=== PATIENT | female | born 1965 | race Caucasian/White ===

== ENCOUNTER 2017-04-07 16:29 | Outpatient (CLI) | payer BC ==
--- NOTE | 2017-04-22 11:37 | Mammography Report ---
DIGITAL BILATERAL SCREENING MAMMOGRAM: 04/07/2017 COMPARISON: None. TECHNIQUE: Routine CC and MLO projections were obtained of the breasts. FINDINGS: Scattered fibroglandular tissue is present within the breasts. There are no dominant terrence s, suspicious microcalcifications, or secondary signs of malignancy. In comparison to the previous st udies, there are no significant changes. ASSESSMENT: NO MAMMOGRAPHIC EVIDENCE OF MALIGNANCY. NO SIGNIFICANT INTERVAL CHANGES. RECOMMENDATION: Screening mammography is recommended annually. BI-RADS category 1 - negative. STANDARD QUALIFYING STATEMENTS 1. This examination was reviewed with the aid of Computed-Aided Detection (CAD). 2. A negative or benign imaging report should not delay biopsy if clinically suspicious findings are present. Consider surgical consultation if warranted. More than 5% of cancers are not identified by i maging. 3. Dense breasts may obscure an underlying neoplasm. JOB #: [id number] EXT JOB #:[id number]
== END 2017-04-07 16:30 | disposition home or self-care (01) ==
LOC: DI 16:29
PROVIDERS: ATTEND Family Medicine
DX: Z12.31 Encounter for screening mammogram for malignant neoplasm of breast (principal)
CPT/HCPCS: 77067

== ENCOUNTER 2017-07-06 08:00 | Outpatient (CLI) | payer BC ==
[2017-07-06 12:40] LABS: BASOPHILS # (AUTO) 0.1 10^3/uL (0.0-0.1); BASOPHILS % (AUTO) 1.1 %; EOSINOPHILS # (AUTO) 0.6 10^3/uL (0.0-0.7); EOSINOPHILS % (AUTO) 8.3 %; HGB - HEMOGLOBIN 13.7 g/dL (12.0-16.0); LYMPHOCYTES # (AUTO) 1.7 10^3/uL (1.5-3.5); LYMPHOCYTES % (AUTO) 25.5 %; MEAN CORPUSCULAR HEMOGLOBIN 29.8 pg (27.0-31.0); MEAN CORPUSCULAR HGB CONC 34.7 g/dL (32.0-36.0); MEAN CORPUSCULAR VOLUME 85.8 fL (81.0-99.0); MEAN PLATELET VOLUME 7.4 fL (7.9-10.8); MONOCYTES # (AUTO) 0.3 10^3/uL (0.0-1.0); MONOCYTES % (AUTO) 5.1 %; NEUTROPHILS # (AUTO) 4.1 10^3/uL (1.5-6.6); PLT - PLATELET COUNT 338 10^3/uL (130-450); RED BLOOD COUNT 4.59 10^6/uL (4.20-5.40); WHITE BLOOD COUNT 6.8 x10^3/uL (4.8-10.8)
[2017-07-06 13:33] LABS: ALBUMIN 3.7 g/dL (3.2-5.5); ALBUMIN/GLOBULIN RATIO 1.2 (1.0-2.2); ALKALINE PHOSPHATASE 46 IU/L (42-121); ALT ALANINE AMINOTRANSFERASE 24 IU/L (10-60); AST ASPARTATE AMINOTRANSFERASE 19 IU/L (10-42); BILIRUBIN,TOTAL 0.4 mg/dL (0.2-1.0); BUN - BLOOD UREA NITROGEN 12 mg/dL (6-20); CALCIUM 8.5 mg/dL (8.5-10.3); CARBON DIOXIDE - CO2 24 mmol/L (21-32); CHLORIDE 106 mmol/L (101-111); CHOL/HDL RATIO 5.1 (<4.4); CHOLESTEROL 218 mg/dL; CREATININE 0.8 mg/dL (0.4-1.0); GFR - MDRD 76 (>89); GLUCOSE 99 mg/dL (70-100); HDL CHOLESTEROL 43 mg/dL; LDL CHOLESTEROL,CALCULATED 152 mg/dL; LDL/HDL RATIO 3.5 (<4.4); SODIUM 135 mmol/L (135-145); TOTAL PROTEIN 6.9 g/dL (6.7-8.2); VLDL CHOLESTEROL 23 mg/dL
== END 2017-07-06 08:01 | disposition home or self-care (01) ==
LOC: LAB.WCP 08:00
PROVIDERS: ATTEND Family Medicine
DX: Z00.00 Encounter for general adult medical examination without abnormal findings (principal)
CPT/HCPCS: 36415; 80053; 80061; 84443; 85025

== ENCOUNTER 2017-08-19 14:50 | Outpatient (CLI) | payer BC ==
--- NOTE | 2017-08-20 11:17 | MRI Report ---
EXAM: MRI LUMBAR SPINE WITHOUT CONTRAST EXAM DATE: 08/19/2017 03:00 PM. CLINICAL HISTORY: Lumbar radiculopathy, right. COMPARISON: None. TECHNIQUE: Multiplanar, multisequence T1-weighted and fluid-sensitive sequences of the lumbar spine f rom T12 to S1 without contrast. Other: None. FINDINGS: Spinal Cord: The conus terminates at L1. The conus medullaris and cauda equina are unremarkable. Alignment: No scoliosis or spondylolisthesis. Bone Marrow: Five cpp-lor-rimeehe lumbar vertebral bodies are assumed. No gross fractures or bone les ions. No bone marrow edema. Disk Levels/Facets: T12-L1: Unremarkable. L1-L2: Unremarkable. L2-L3: Unremarkable. L3-L4: Unremarkable. L4-L5: Some disk dehydration. Prominent facets. No central or foraminal stenosis. L5-S1: Disk dehydration, disk space height loss, right paracentral annular tear and focal disk extrus ion is present, with mass-effect on the right ventral thecal sac and the right S1 nerve root in the s ubarticular zone. This disk extrusion is 1.4 x 0.8 cm transversely extending for a 0.9 cm cephalocaud al extent. Series 601 image 4, series 301 image 8. Musculature: Moderate fatty atrophy of the multifidus muscle is seen. Other: The partially visualized retroperitoneum is unremarkable. IMPRESSION: 1. Spinal cord terminates at L1, no abnormal cord signal. Bones, articular surfaces appear unremarkab le. Moderate fatty atrophy of the multifidus muscle. 2. L4-L5 shows some disk dehydration, no central or foraminal stenosis. 3. L5-S1 shows disk hydration and disk space height loss. There is a right paracentral annular tear a nd focal disk extrusion measuring 1.4 x 0.8 x 0.9 cm. It exerts mass-effect on the right ventral thec al sac creating at least mild stenosis. There also is some effacement of the right S1 root in the sub articular zone. Comment: The following findings are so common in adults without low back pain that while we report th eir presence, they must be interpreted with caution and in the context of the clinical situation. (Re ronni Ramon et al, Spine 2001) Prevalence of findings in patients without low back pain: Disk degeneration (any evidence): 92% Disk desiccation/T2 signal loss: 83% Disk height loss: 56% Disk bulge: 64% Disk protrusion: 32% Annular tear/high intensity zone: 38% [facility] Referring Provider Line: [phone] SITE ID: [id number]
== END 2017-08-19 14:51 | disposition home or self-care (01) ==
LOC: DI 14:50
PROVIDERS: ATTEND Family Medicine
DX: M51.36 Other intervertebral disc degeneration, lumbar region (principal); M51.27 Other intervertebral disc displacement, lumbosacral region; M51.37 Other intervertebral disc degeneration, lumbosacral region
CPT/HCPCS: 72148

== ENCOUNTER 2017-11-09 08:10 | Outpatient (CLI) | payer BC | END 2017-11-09 08:11 | LOC: LAB.WCP 08:10 | PROVIDERS: ATTEND Family Medicine | DX: L02.415 Cutaneous abscess of right lower limb (principal) | CPT/HCPCS: 87070; 87205 ==

== ENCOUNTER 2018-03-19 14:53 | Emergency (ER) | payer BC ==
--- NOTE | 2018-03-19 15:29 | ED Physician Documentation ---
PD HPI ABD PAIN - Stated complaint Stated Complaint: LLQ PX/ LAPBAND/4 DAYS - Chief complaint Chief Complaint: Abd Pain - History obtained from History obtained from: Patient - History of Present Illness Timing - onset: Other (This is a 52-year-old woman with a 15-year-old LAP-BAND and history of hysterectomy. No colonoscopy in the past. She said 4 days of constant left lower quadrant pain that is worse with motion associated with nausea but no changes in her bowel movements or hematochezia. She is never had this before. No fevers. She declines pain medication.) Review of Systems Ten Systems: 10 systems reviewed and negative Constitutional: denies: Fever, Chills Cardiac: denies: Chest pain / pressure, Palpitations Respiratory: denies: Dyspnea, Cough GI: reports: Abdominal Pain, Nausea. denies: Vomiting, Constipation, Diarrhea, Bloody / black stool PD PAST MEDICAL HISTORY - Present Medications Home Medications: Ambulatory Orders Medication Instructions Recorded Confirmed Magnesium 1 tab PO DAILY 03/19/18 03/19/18 Milk Thistle Seed Extract [Milk 1 tab PO DAILY 03/19/18 03/19/18 Thistle] Turmeric/Turmeric Root Extract 1 cap PO DAILY 03/19/18 03/19/18 [Turmeric 500 mg Capsule] Vit A/D3/Tocophersolan/Vit K 1 tab PO DAILY 03/19/18 03/19/18 [Dekas Essential Liquid] - Allergies Allergies/Adverse Reactions: Allergies Allergy/AdvReac Type Severity Reaction Status Date / Time No Known Drug Allergies Allergy Verified 03/19/18 15:00 PD ED PE NORMAL - Vitals Vital signs reviewed: Yes - General General: Alert and oriented X 3, No acute distress - HEENT HEENT: PERRL, EOMI - Neck Neck: Supple, no meningeal sign, No bony TTP - Cardiac Cardiac: RRR, No murmur - Respiratory Respiratory: No respiratory distress, Clear bilaterally - Abdomen Abdomen: Normal bowel sounds, Soft, Other (I am unable to identify her lap band port definitively by palpation. She is tender in the left lower quadrant and pelvis without surgical signs.) - Back Back: No CVA TTP, No spinal TTP - Derm Derm: Normal color, Warm and dry - Extremities Extremities: No edema, No calf tenderness / cord - Neuro Neuro: Alert and oriented X 3, Normal speech Results - Vitals Vitals: Vital Signs - 24 hr 03/19/18 14:55 Temperature 36.5 C Heart Rate 88 Respiratory 16 Rate Blood Pressure 152/98 H O2 Saturation 96 Oxygen O2 Source Room air - Labs Labs: Laboratory Tests 03/19/18 03/19/18 03/19/18 15:32 15:32 17:00 WBC 10.1 RBC 4.65 Hgb 13.5 Hct 39.8 MCV 85.5 MCH 29.1 MCHC 34.1 RDW 14.3 Plt Count 333 MPV 6.9 L Neut # (Auto) 6.4 Lymph # (Auto) 2.3 [place] # (Auto) 0.5 Eos # (Auto) 0.9 H Baso # (Auto) 0.1 Absolute Nucleated RBC 0.01 Nucleated RBC % 0.1 Sodium 137 Potassium 3.2 L Chloride 104 Carbon Dioxide 27 Anion Gap 6.0 BUN 10 Creatinine 0.7 Estimated GFR (MDRD) 89 Glucose 93 Calcium 8.7 Total Bilirubin 0.3 AST 29 ALT 39 Alkaline Phosphatase 53 Total Protein 6.7 Albumin 3.4 Globulin 3.3 Albumin/Globulin Ratio 1.0 Lipase 37 Urine Color YELLOW Urine Clarity CLEAR Urine pH 6.0 Ur Specific [place] 1.020 Urine Protein NEGATIVE Urine Glucose (UA) NEGATIVE Urine Ketones NEGATIVE Urine Occult Blood NEGATIVE Urine Nitrite NEGATIVE Urine Bilirubin NEGATIVE Urine Urobilinogen 0.2 (NORMAL) Ur Leukocyte Esterase NEGATIVE Ur Microscopic Review NOT INDICATED Urine Culture Comments NOT INDICATED - Rads (name of study) Ct A/P Radiology: See rad report (Small fat containing L femoral hernia, lap band with broken tubing/) PD MEDICAL DECISION MAKING - ED course ED course: History and physical is most consistent with diverticulitis. Be pretty late to have a LAP-BAND complication. I discussed my approach with her including IV, labs, and a contrast-enhanced CT. She is deathly afraid of needles and despite offering an anxiolytic she refused any IV or lab draw. After resulting the CT scan the case was discussed by phone with Dr. Williams Steward, the on-call surgeon. The broken lap band tubing is inconsequential and should not cause pain but the LAP-BAND will not work. Given the finding of the left sided femoral hernia she was specifically examined and had no tenderness down there. - Sepsis Event Vital Signs: Vital Signs - 24 hr 03/19/18 14:55 Temperature 36.5 C Heart Rate 88 Respiratory 16 Rate Blood Pressure 152/98 H O2 Saturation 96 Oxygen O2 Source Room air Departure - Departure Disposition: 01 Home, Self Care Clinical Impression: Femoral hernia of left side Abdominal pain Qualifiers: Abdominal location: left lower quadrant Qualified Code(s): R10.32 - Left lower quadrant pain Condition: Good Record reviewed to determine appropriate education?: Yes Instructions: ED Abdominal Pain Unkn Cause Comments: Return immediately if he develop increased pain, vomiting, fever, or other new or concerning symptoms. Follow-up with your doctor next week for reevaluation. Consider following up with a bariatric surgeon regarding the broken lap band. Your blood pressure was elevated today on check into the emergency department. This does not mean that you have hypertension, it is a common phenomenon to come to the emergency department and have elevated blood pressure. I recommend that you see your primary care physician within the week to have it rechecked when you are feeling better.
[2018-03-19 15:53] LABS: BASOPHILS # (AUTO) 0.1 10^3/uL (0.0-0.1); BASOPHILS % (AUTO) 1.1 %; EOSINOPHILS # (AUTO) 0.9 10^3/uL (0.0-0.7); EOSINOPHILS % (AUTO) 8.7 %; HGB - HEMOGLOBIN 13.5 g/dL (12.0-16.0); LYMPHOCYTES # (AUTO) 2.3 10^3/uL (1.5-3.5); LYMPHOCYTES % (AUTO) 22.4 %; MEAN CORPUSCULAR HEMOGLOBIN 29.1 pg (27.0-31.0); MEAN CORPUSCULAR HGB CONC 34.1 g/dL (32.0-36.0); MEAN CORPUSCULAR VOLUME 85.5 fL (81.0-99.0); MEAN PLATELET VOLUME 6.9 fL (7.9-10.8); MONOCYTES # (AUTO) 0.5 10^3/uL (0.0-1.0); MONOCYTES % (AUTO) 4.6 %; NEUTROPHILS # (AUTO) 6.4 10^3/uL (1.5-6.6); NEUTROPHILS % (AUTO) 63.2 %; PLT - PLATELET COUNT 333 10^3/uL (130-450); RED BLOOD COUNT 4.65 10^6/uL (4.20-5.40); RED CELL DISTRIBUTION WIDTH 14.3 % (12.0-15.0); WHITE BLOOD COUNT 10.1 x10^3/uL (4.8-10.8)
[2018-03-19 15:54] LABS: ALBUMIN 3.4 g/dL (3.2-5.5); BILIRUBIN,TOTAL 0.3 mg/dL (0.2-1.0); CALCIUM 8.7 mg/dL (8.5-10.3); CREATININE 0.7 mg/dL (0.4-1.0); TOTAL PROTEIN 6.7 g/dL (6.7-8.2)
--- NOTE | 2018-03-19 16:42 | CT Report ---
Reason: LLQ pain, pt refused IV Procedure Date: 03/19/2018 Accession Number: [id number] / [id number] Procedure: CT - Abdomen/Pelvis W/O CPT Code: FULL RESULT: EXAM: CT ABDOMEN AND PELVIS EXAM DATE: 03/19/2018 04:09 PM. CLINICAL HISTORY: LLQ pain, pt refused IV. COMPARISONS: None. TECHNIQUE: Routine axial helical CT imaging was performed through the abdomen and pelvis without IV contrast. Reconstructions: Coronal and sagittal. In accordance with CT protocol optimization, one or more of the following dose reduction techniques were utilized for this exam: automated exposure control, adjustment of mA and/or KV based on patient size, or use of iterative reconstructive technique. FINDINGS: Lung Bases: Unremarkable. Abdominal Organs: Noncontrast images of the abdominal organs are grossly unremarkable. Gallbladder/bile ducts: No significant abnormalities. Peritoneal Cavity: No free fluid, free air or belia adenopathy. Bowel is grossly unremarkable. Pelvic Organs: No bladder stones or wall thickening. Noncontrast images of the visualized pelvic organs are unremarkable. Vasculature: Unremarkable. Other: Small fat-containing left angle hernia without evidence of associated inflammation. There is discontinuity of the gastric lap band tubing. IMPRESSION: 1. Gastric lap band is in place. There is disruption of the tubing of the lap band apparatus. 2. Solid abdominal organs demonstrate no acute noncontrast abnormalities. 3. No dilated or thick-walled bowel is seen. No evidence of appendicitis or bowel obstruction. 4. There is a small fat-containing left femoral hernia without evidence of associated inflammation. ADDENDUM: 03/19/18 16:43 Corrected IMPRESSION: 4. There is a small fat-containing left inguinal hernia without evidence of associated inflammation.
[2018-03-19 17:19] LABS: BILIRUBIN,URINE NEGATIVE (NEGATIVE); GLUCOSE, URINE (UA) NEGATIVE (NEGATIVE); KETONES,URINE (UA) NEGATIVE (NEGATIVE); LEUKOCYTE ESTERASE, URINE NEGATIVE (NEGATIVE); NITRITE,URINE NEGATIVE (NEGATIVE); OCCULT BLOOD,URINE NEGATIVE (NEGATIVE); PROTEIN,URINE NEGATIVE (NEGATIVE); UROBILINOGEN,URINE 0.2 (NORMAL) E.U./dL (NORMAL)
[2018-03-19 17:20] LABS: CLARITY,URINE CLEAR (CLEAR)
[2018-03-19 17:32] VITALS: BP 140/76
== END 2018-03-19 17:32 | disposition home or self-care (01) ==
LOC: ED 14:53
DX: K41.90 Unilateral femoral hernia, without obstruction or gangrene, not specified as recurrent (principal); R10.32 Left lower quadrant pain; R03.0 Elevated blood-pressure reading, without diagnosis of hypertension; Z98.84 Bariatric surgery status; Z90.710 Acquired absence of both cervix and uterus
CPT/HCPCS: 36415; 74176; 80053; 81001; 81003; 83690; 85025; 87086; 99283; 99284

== ENCOUNTER 2018-03-31 07:42 | Outpatient (CLI) | payer BC ==
[2018-03-31 13:09] LABS: BASOPHILS # (AUTO) 0.1 10^3/uL (0.0-0.1); BASOPHILS % (AUTO) 0.9 %; EOSINOPHILS # (AUTO) 0.7 10^3/uL (0.0-0.7); EOSINOPHILS % (AUTO) 8.4 %; HGB - HEMOGLOBIN 13.6 g/dL (12.0-16.0); LYMPHOCYTES # (AUTO) 1.9 10^3/uL (1.5-3.5); LYMPHOCYTES % (AUTO) 24.3 %; MEAN CORPUSCULAR HGB CONC 33.7 g/dL (32.0-36.0); MEAN PLATELET VOLUME 7.4 fL (7.9-10.8); MONOCYTES # (AUTO) 0.5 10^3/uL (0.0-1.0); MONOCYTES % (AUTO) 6.7 %; NEUTROPHILS # (AUTO) 4.6 10^3/uL (1.5-6.6); NEUTROPHILS % (AUTO) 59.7 %; PLT - PLATELET COUNT 348 10^3/uL (130-450); RED BLOOD COUNT 4.69 10^6/uL (4.20-5.40); RED CELL DISTRIBUTION WIDTH 14.6 % (12.0-15.0); WHITE BLOOD COUNT 7.7 x10^3/uL (4.8-10.8)
[2018-03-31 13:11] LABS: % IRON SATURATION 14 % (20-50); ALBUMIN 3.4 g/dL (3.2-5.5); ALKALINE PHOSPHATASE 57 IU/L (42-121); ALT ALANINE AMINOTRANSFERASE 24 IU/L (10-60); AST ASPARTATE AMINOTRANSFERASE 19 IU/L (10-42); BILIRUBIN,TOTAL 0.5 mg/dL (0.2-1.0); BUN - BLOOD UREA NITROGEN 11 mg/dL (6-20); CALCIUM 8.4 mg/dL (8.5-10.3); CARBON DIOXIDE - CO2 24 mmol/L (21-32); CHLORIDE 104 mmol/L (101-111); CHOL/HDL RATIO 5.5 (<4.4); CHOLESTEROL 209 mg/dL; CREATININE 0.7 mg/dL (0.4-1.0); GFR - MDRD 89 (>89); GLUCOSE 94 mg/dL (70-100); HDL CHOLESTEROL 38 mg/dL; IRON 43 ug/dL (28-170); LDL CHOLESTEROL,CALCULATED 149 mg/dL; LDL/HDL RATIO 3.9 (<4.4); SODIUM 136 mmol/L (135-145); TOTAL IRON BINDING CAPACITY 304 ug/dL (250-450); TOTAL PROTEIN 6.8 g/dL (6.7-8.2); TRANSFERRIN 217 mg/dL (192-382); VLDL CHOLESTEROL 22 mg/dL
[2018-03-31 13:16] LABS: PT - PROTHROMBIN TIME 11.3 secs (9.9-12.6)
[2018-03-31 13:20] LABS: THYROID STIMULATING HORMONE 1.08 uIU/mL (0.34-5.60)
[2018-03-31 13:28] LABS: FERRITIN 48.7 ng/mL (11.0-306.8)
[2018-03-31 13:32] LABS: FOLATE 7.93 ng/mL (5.90 - >24.8)
[2018-03-31 13:52] LABS: HB2 TOTAL 14.2 g/dL; HEMOGLOBIN A1C 0.52 g/dL; HEMOGLOBIN A1C % 5.5 % (4.6-6.2)
== END 2018-03-31 07:43 | disposition home or self-care (01) ==
LOC: LAB.WCP 07:42
PROVIDERS: ATTEND Surgery
DX: Z01.812 Encounter for preprocedural laboratory examination (principal); E46 Unspecified protein-calorie malnutrition; E63.9 Nutritional deficiency, unspecified
CPT/HCPCS: 36415; 80053; 80061; 81599; 82306; 82607; 82728; 82746; 83036; 83525; 83540; 83721; 84425; 84443; 84466; 84481; 85025; 85610; 85730

== ENCOUNTER 2018-05-04 08:27 | Outpatient (CLI) | payer BC ==
--- NOTE | 2018-05-05 11:04 | Mammography Report ---
Reason: SCREENING MAMMO Procedure Date: 05/04/2018 Accession Number: [id number] / [id number] Procedure: NIMO - Screening Mammo Dig Bilat CPT Code: FULL RESULT: EXAM: Screening Mammo Dig Bilat DATE: 05/04/2018 9:14 AM CLINICAL HISTORY: 52-year-old female with family history of breast cancer in an aunt in her 40s for screening. TECHNIQUE: Bilateral CC and MLO views were obtained. COMPARISON: 04/07/2017. FINDINGS: The breasts demonstrate scattered fibroglandular densities bilaterally. No suspicious masses, clustered microcalcifications, or regions of architectural distortion are identified. IMPRESSION: Negative examination RECOMMENDATION: Routine annual screening unless otherwise clinically indicated. BIRADS CATEGORY 1: Negative STANDARD QUALIFYING STATEMENTS: 1. This examination was not reviewed with the aid of Computer-Aided Detection (CAD). 2. A negative or benign imaging report should not delay biopsy if clinically suspicious findings are present. Consider surgical consultation if warrented. More than 5% of cancers are not identified by imaging. 3. Dense breasts may obscure an underlying neoplasm. 4. This examination was reviewed without the aid of 3D breast imaging (tomosynthesis).
== END 2018-05-04 08:28 | disposition home or self-care (01) ==
LOC: DI 08:27
DX: Z12.31 Encounter for screening mammogram for malignant neoplasm of breast (principal); Z80.3 Family history of malignant neoplasm of breast
CPT/HCPCS: 77067

== ENCOUNTER 2018-06-02 22:40 | Outpatient (CLI) | payer BC ==
--- NOTE | 2018-06-04 07:55 | Ultrasound Report ---
Reason: ABDOMINAL PAIN Procedure Date: 06/03/2018 Accession Number: [id number] / [id number] Procedure: US - Abdomen Limited CPT Code: FULL RESULT: EXAM: ABDOMEN ULTRASOUND LIMITED, RUQ EXAM DATE: 06/03/2018 12:29 AM. CLINICAL HISTORY: ABDOMINAL PAIN. COMPARISON: None. TECHNIQUE: Real-time scanning was performed with static images obtained. FINDINGS: Scanning of the region of pain identified by the patient was performed. There is no evidence of a hernia. Image quality is degraded by Steri-Strips and locations. Trace fluid is seen in the subcutaneous fat, measuring 8 x 2 x 1 mm. IMPRESSION: No evidence of a hernia in the region of pain identified by the patient. Trace fluid in the subcutaneous fat. [facility]
== END 2018-06-02 22:41 | disposition home or self-care (01) ==
LOC: DI 22:40
PROVIDERS: ATTEND Surgery
DX: R10.9 Unspecified abdominal pain (principal)
CPT/HCPCS: 76705

== ENCOUNTER 2018-11-01 08:00 | Outpatient (CLI) | payer BC ==
[2018-11-01 12:44] LABS: BASOPHILS # (AUTO) 0.1 10^3/uL (0.0-0.1); EOSINOPHILS # (AUTO) 0.3 10^3/uL (0.0-0.7); EOSINOPHILS % (AUTO) 5.3 %; HGB - HEMOGLOBIN 12.8 g/dL (12.0-16.0); LYMPHOCYTES # (AUTO) 1.7 10^3/uL (1.5-3.5); LYMPHOCYTES % (AUTO) 26.3 %; MEAN CORPUSCULAR HEMOGLOBIN 30.7 pg (27.0-31.0); MEAN CORPUSCULAR HGB CONC 34.3 g/dL (32.0-36.0); MEAN CORPUSCULAR VOLUME 89.4 fL (81.0-99.0); MEAN PLATELET VOLUME 8.1 fL (7.9-10.8); MONOCYTES # (AUTO) 0.4 10^3/uL (0.0-1.0); MONOCYTES % (AUTO) 5.5 %; NEUTROPHILS # (AUTO) 3.9 10^3/uL (1.5-6.6); NEUTROPHILS % (AUTO) 60.9 %; PLT - PLATELET COUNT 296 10^3/uL (130-450); RED BLOOD COUNT 4.19 10^6/uL (4.20-5.40); RED CELL DISTRIBUTION WIDTH 14.3 % (12.0-15.0); WHITE BLOOD COUNT 6.5 x10^3/uL (4.8-10.8)
[2018-11-01 13:15] LABS: THYROID STIMULATING HORMONE 1.21 uIU/mL (0.34-5.60)
[2018-11-01 13:23] LABS: FERRITIN 42.3 ng/mL (11.0-306.8)
[2018-11-01 13:26] LABS: FOLATE 15.88 ng/mL (5.90 - >24.8)
[2018-11-01 14:19] LABS: % IRON SATURATION 16 % (20-50); ALBUMIN 3.7 g/dL (3.2-5.5); ALBUMIN/GLOBULIN RATIO 1.2 (1.0-2.2); ALKALINE PHOSPHATASE 57 IU/L (42-121); ALT ALANINE AMINOTRANSFERASE 21 IU/L (10-60); AST ASPARTATE AMINOTRANSFERASE 17 IU/L (10-42); BILIRUBIN,TOTAL 0.5 mg/dL (0.2-1.0); BUN - BLOOD UREA NITROGEN 11 mg/dL (6-20); CALCIUM 8.8 mg/dL (8.5-10.3); CARBON DIOXIDE - CO2 26 mmol/L (21-32); CHLORIDE 104 mmol/L (101-111); CHOL/HDL RATIO 3.9 (<4.4); CHOLESTEROL 166 mg/dL; CREATININE 0.7 mg/dL (0.4-1.0); GFR - MDRD 89 (>89); GLUCOSE 91 mg/dL (70-100); HDL CHOLESTEROL 43 mg/dL; IRON 53 ug/dL (28-170); LDL CHOLESTEROL,CALCULATED 106 mg/dL; LDL/HDL RATIO 2.5 (<4.4); SODIUM 139 mmol/L (135-145); TOTAL IRON BINDING CAPACITY 329 ug/dL (250-450); TOTAL PROTEIN 6.9 g/dL (6.7-8.2); TRANSFERRIN 235 mg/dL (192-382); VLDL CHOLESTEROL 17 mg/dL
[2018-11-01 14:32] LABS: HB2 TOTAL 13.6 g/dL; HEMOGLOBIN A1C 0.46 g/dL; HEMOGLOBIN A1C % 5.2 % (4.6-6.2)
== END 2018-11-01 08:01 | disposition home or self-care (01) ==
LOC: LAB.WCP 08:00
PROVIDERS: ATTEND Nurse Practitioner Acute Care
DX: E46 Unspecified protein-calorie malnutrition (principal); Z98.84 Bariatric surgery status
CPT/HCPCS: 36415; 80053; 80061; 81599; 82306; 82607; 82728; 82746; 83036; 83525; 83540; 83721; 84425; 84443; 84466; 85025

== ENCOUNTER 2019-04-05 08:31 | Day surgery (SDC) | payer BC ==
[2019-04-05] MEDS ORDERED: LACTATED RINGERS 1,000 ML IV ONE (09:22)
[2019-04-05] MEDS ORDERED: fentaNYL 250 MCG/5 ML VIAL IVP ONE (10:32)
[2019-04-05] MEDS ORDERED: MIDAZOLAM 2 MG/2 ML VIAL IVP ONE (10:32)
[2019-04-05 12:49] VITALS: BP 104/60
== END 2019-04-05 08:32 | disposition home or self-care (01) ==
LOC: SDS 08:31
PROVIDERS: ATTEND Internal Medicine Gastroenterology
PROC: 0DBL8ZZ Excision of Transverse Colon, Via Natural or Artificial Opening Endoscopic (ICD-10-PCS; 2019-04-05)
PROC: 0DBP8ZZ Excision of Rectum, Via Natural or Artificial Opening Endoscopic (ICD-10-PCS; principal; 2019-04-05 10:15)
DX: Z12.11 Encounter for screening for malignant neoplasm of colon (principal); K63.89 Other specified diseases of intestine; D12.8 Benign neoplasm of rectum; K21.9 Gastro-esophageal reflux disease without esophagitis; Z98.84 Bariatric surgery status; J30.9 Allergic rhinitis, unspecified; M54.5 Low back pain; Z87.891 Personal history of nicotine dependence; F40.231 Fear of injections and transfusions
CPT/HCPCS: 45380; J3010; J7120

== ENCOUNTER 2019-06-02 08:00 | Outpatient (CLI) | payer BC ==
[2019-06-02 13:03] LABS: BASOPHILS # (AUTO) 0.1 10^3/uL (0.0-0.1); EOSINOPHILS # (AUTO) 0.5 10^3/uL (0.0-0.7); EOSINOPHILS % (AUTO) 6.3 %; LYMPHOCYTES % (AUTO) 25.4 %; MEAN CORPUSCULAR HEMOGLOBIN 29.1 pg (27.0-31.0); MEAN CORPUSCULAR HGB CONC 32.3 g/dL (32.0-36.0); MEAN CORPUSCULAR VOLUME 90.1 fL (81.0-99.0); MEAN PLATELET VOLUME 9.8 fL (7.9-10.8); MONOCYTES # (AUTO) 0.5 10^3/uL (0.0-1.0); MONOCYTES % (AUTO) 5.7 %; NEUTROPHILS # (AUTO) 4.9 10^3/uL (1.5-6.6); NEUTROPHILS % (AUTO) 61.3 %; PLT - PLATELET COUNT 305 10^3/uL (130-450); RED BLOOD COUNT 4.46 10^6/uL (4.20-5.40); RED CELL DISTRIBUTION WIDTH 13.9 % (12.0-15.0)
[2019-06-02 13:19] LABS: THYROID STIMULATING HORMONE 0.88 uIU/mL (0.34-5.60)
[2019-06-02 13:25] LABS: % IRON SATURATION 32 % (20-50); ALBUMIN 3.9 g/dL (3.2-5.5); ALBUMIN/GLOBULIN RATIO 1.2 (1.0-2.2); ALKALINE PHOSPHATASE 47 IU/L (42-121); ALT ALANINE AMINOTRANSFERASE 19 IU/L (10-60); AST ASPARTATE AMINOTRANSFERASE 14 IU/L (10-42); BILIRUBIN,TOTAL 0.6 mg/dL (0.2-1.0); BUN - BLOOD UREA NITROGEN 13 mg/dL (6-20); CARBON DIOXIDE - CO2 27 mmol/L (21-32); CHLORIDE 107 mmol/L (101-111); CHOL/HDL RATIO 4.1 (<4.4); CHOLESTEROL 196 mg/dL; CREATININE 0.7 mg/dL (0.4-1.0); GFR - MDRD 88 (>89); GLUCOSE 89 mg/dL (70-100); HDL CHOLESTEROL 48 mg/dL; IRON 109 ug/dL (28-170); LDL CHOLESTEROL,CALCULATED 126 mg/dL; LDL/HDL RATIO 2.6 (<4.4); SODIUM 140 mmol/L (135-145); TOTAL IRON BINDING CAPACITY 340 ug/dL (250-450); TOTAL PROTEIN 7.1 g/dL (6.7-8.2); TRANSFERRIN 243 mg/dL (192-382); VLDL CHOLESTEROL 22 mg/dL
[2019-06-02 13:26] LABS: FERRITIN 39.1 ng/mL (11.0-306.8)
[2019-06-02 16:37] LABS: HB2 TOTAL 13.5 g/dL; HEMOGLOBIN A1C 0.51 g/dL; HEMOGLOBIN A1C % 5.6 % (4.6-6.2)
== END 2019-06-02 23:59 | disposition home or self-care (01) ==
LOC: LAB.WCP 08:00
PROVIDERS: ATTEND Surgery
DX: E63.9 Nutritional deficiency, unspecified (principal); K90.9 Intestinal malabsorption, unspecified; Z98.84 Bariatric surgery status
CPT/HCPCS: 36415; 80053; 80061; 81599; 82306; 82607; 82728; 82746; 83036; 83525; 83540; 83721; 84425; 84443; 84466; 85025

== ENCOUNTER 2019-06-14 15:47 | Outpatient (CLI) | payer BC ==
--- NOTE | 2019-06-15 11:20 | Mammography Report ---
Reason: ANNUAL SCREENING Procedure Date: 06/14/2019 Accession Number: [id number] / [id number] Procedure: NIMO - Screening Mammo Dig Bilat CPT Code: Final Report FULL RESULT: EXAM: Screening Mammo Dig Bilat DATE: 06/14/2019 4:14 PM CLINICAL HISTORY: Routine screening. TECHNIQUE: (B) - Bilateral CC and MLO views were obtained. COMPARISON: 05/04/2018, 04/07/2017 PARENCHYMAL PATTERN: (A) - The breasts demonstrate scattered fibroglandular densities bilaterally. FINDINGS: No significant interval change. There are no suspicious masses, calcifications, or areas of distortion. IMPRESSION: Negative examination. BI-RADS category 1. RECOMMENDATION: (ANNUAL) - Recommend routine annual screening mammography. BI-RADS CATEGORY: (1) - Negative. STANDARD QUALIFYING STATEMENTS: 1. This examination was not reviewed with the aid of Computer-Aided Detection (CAD). 2. A negative or benign imaging report should not preclude biopsy if clinically suspicious findings are present. 3. Dense breasts may obscure an underlying neoplasm. 4. This examination was reviewed without the aid of 3D breast imaging (tomosynthesis).
== END 2019-06-14 15:48 | disposition home or self-care (01) ==
LOC: DI 15:47
DX: Z12.31 Encounter for screening mammogram for malignant neoplasm of breast (principal)
CPT/HCPCS: 77067

== ENCOUNTER 2020-09-10 15:18 | Outpatient (CLI) | payer BC ==
--- NOTE | 2020-09-11 12:51 | Mammography Report ---
BILATERAL DIGITAL SCREENING MAMMOGRAM 3D/2D: 09/10/2020 CLINICAL: Routine screening. Comparison is made to exams dated: 06/14/2019 mammogram, 05/04/2018 mammogram, and 04/07/2017 mammogr am - [facility]. There are scattered fibroglandular elements in both breasts. There is a 0.8 cm irregular equal density asymmetry in the right breast posterior depth superior caryn on seen on the mediolateral oblique view only. This is more prominent and increased in size. No other significant masses, calcifications, or other findings are seen in either breast. IMPRESSION: INCOMPLETE: NEEDS ADDITIONAL IMAGING EVALUATION The 0.8 cm irregular equal density asymmetry in the right breast resembles a lymph node and is indete rminate. Additional views with possible ultrasound are recommended. This exam was interpreted at Station ID: [id number]. NOTE: For mammograms, a report in lay terms will be sent to the patient. Approximately 15% of breast malignancies will not be visualized mammographically. In the management of a palpable breast mass, a negative mammogram must not discourage biopsy of a clinically suspicious lesion. Electronically Signed By: Jayme Hernandez M.D. aty/:09/10/2020 17:05:24 ACR BI-RADS Category 0: Incomplete 3340F PARENCHYMAL PATTERN: (A) - The breast(s) demonstrate(s) scattered fibroglandular densities. BI-RADS CATEGORY: (0) - 0 Mammo and [place] [id number] Immediate follow-up LATERALITY: (R)
== END 2020-09-10 15:19 | disposition home or self-care (01) ==
LOC: DI 15:18
DX: Z12.31 Encounter for screening mammogram for malignant neoplasm of breast (principal); R92.8 Other abnormal and inconclusive findings on diagnostic imaging of breast

== ENCOUNTER 2020-09-11 08:00 | Outpatient (CLI) | payer BC ==
[2020-09-13 13:42] LABS: ALBUMIN 3.8 g/dL (3.8-4.8); ALPHA 1 GLOBULIN 0.3 g/dL (0.2-0.3); ALPHA 2 GLOBULIN 0.6 g/dL (0.5-0.9); BETA 1 GLOBULIN 0.4 g/dL (0.4-0.6); BETA 2 GLOBULIN 0.4 g/dL (0.2-0.5); GAMMA GLOBULIN 0.9 g/dL (0.8-1.7)
== END 2020-09-11 23:59 | disposition home or self-care (01) ==
LOC: LAB.WCP 08:00
PROVIDERS: ATTEND Family Medicine
DX: R20.2 Paresthesia of skin (principal)
CPT/HCPCS: 36415; 81599; 82570; 84155; 84156; 84165; 84166

== ENCOUNTER 2020-10-10 08:26 | Outpatient (CLI) | payer BC ==
--- NOTE | 2020-10-11 15:19 | Ultrasound Report ---
LIMITED ULTRASOUND OF RIGHT BREAST: 10/10/2020 CLINICAL: Patient returns today to evaluate a focal asymmetries in the right breast. Comparison is made to exams dated: 09/10/2020 mammogram, 06/14/2019 mammogram, 05/04/2018 mammogram, a nd 04/07/2017 mammogram - [facility]. Color flow and real-time ultrasound of the right breast 9-10 o'clock region were performed. Rosario sca le images of the real-time examination were reviewed. There is a 0.6 cm x 0.5 cm x 0.6 cm taller than wide irregular mass with an indistinct margin in the right breast at 10 o'clock posterior depth 13 cm from the nipple. This irregular mass is hypoechoic with an echogenic boundary. Color flow imaging demonstrates that there is no vascularity present. Th is correlates with mammography findings. No finding to correspond to the patient's mammographic abnormality at 9:00. IMPRESSION: SUSPICIOUS OF MALIGNANCY The 0.6 cm x 0.5 cm x 0.6 cm taller than wide irregular mass in the right breast is at a moderate eileen picion for malignancy. An ultrasound guided biopsy is recommended. Findings and recommendations wer e discussed with the patient by Dr Maylin Oscar at time of exam. There is no abnormality seen in the right breast to correspond with the mammography finding at 9 o'cl ock. 6 month follow up mammogram is recommended to reevaluate this area. This exam was interpreted at Station ID: [id number]. Electronically Signed By: Estephania arambula/:10/10/2020 09:53:25 Ultrasound BI-RADS: 4b Moderate suspicion of malignancy BI-RADS CATEGORY: (4b) - Mod Susp None [id number] Immediate follow-up LATERALITY: ()
--- NOTE | 2020-10-11 15:19 | Mammography Report ---
UNILATERAL RIGHT DIGITAL DIAGNOSTIC MAMMOGRAM 3D/2D: 10/10/2020 CLINICAL: Patient returns today to evaluate a focal asymmetry in the right breast. Comparison is made to exams dated: 09/10/2020 mammogram, 06/14/2019 mammogram, 05/04/2018 mammogram, a nd 04/07/2017 mammogram - [facility]. There are scattered fibroglandular elements in right breast. There is a 9 mm irregular asymmetry in the right breast at 11 o'clock posterior depth. This is seen in additional views. This is more prominent. There also is a 9 mm irregular asymmetry in the right breast at 10 o'clock middle depth. This is inc reased in size. No other significant masses or calcifications are seen in the breast. IMPRESSION: INCOMPLETE: NEEDS ADDITIONAL IMAGING EVALUATION The 9 mm irregular asymmetry in the right breast at 11 o'clock posterior depth is indeterminate. The 9 mm irregular asymmetry in the right breast at 10 o'clock middle depth is indeterminate. These are both possibly lymph nodes or fibroadenomas. Ultrasound is recommended for full evaluation of these areas . This was performed immediately followi ng this exam. This exam was interpreted at Station ID: [id number]. NOTE: For mammograms, a report in lay terms will be sent to the patient. Approximately 15% of breast malignancies will not be visualized mammographically. In the management of a palpable breast mass, a negative mammogram must not discourage biopsy of a clinically suspicious lesion. Electronically Signed By: Estephania arambula/:10/10/2020 08:57:47 ACR BI-RADS Category 0: Incomplete 3340F PARENCHYMAL PATTERN: (A) - The breast(s) demonstrate(s) scattered fibroglandular densities. BI-RADS CATEGORY: (0) - 0 Ultrasound [id number] Immediate follow-up LATERALITY: (B)
== END 2020-10-10 08:27 | disposition home or self-care (01) ==
LOC: DI 08:26
PROVIDERS: ATTEND Family Medicine
DX: R92.8 Other abnormal and inconclusive findings on diagnostic imaging of breast (principal); N63.11 Unspecified lump in the right breast, upper outer quadrant

== ENCOUNTER 2020-10-25 12:09 | Outpatient (CLI) | payer BC ==
[2020-10-25] MEDS ORDERED: BUFFERED LIDOCAINE 10 ML SYRINGE ONE (12:12)
[2020-10-25] MEDS ORDERED: LIDOCAINE MPF 1%-EPI 1:200000 30 ML VIAL ONE (12:13)
--- NOTE | 2020-10-26 09:42 | Ultrasound Report ---
LIMITED ULTRASOUND OF RIGHT BREAST AND AXILLA: 10/25/2020 CLINICAL: Patient returns today to evaluate a focal asymmetry in the right breast. Comparison is made to exams dated: 10/10/2020 ultrasound, 10/10/2020 mammogram, 09/10/2020 mammogram, 1 08/15/2018 mammogram, 05/04/2018 mammogram, and [facility] Ultrasound of the right breast 10 o'clock, and axilla regions was performed. Rosario scale images of th e real-time examination were reviewed. The patient returned today for ultrasound guided biopsy of the previously described taller than wide irregular mass with an indistinct margin in the right breast at 10 o'clock posterior depth 13 cm from the nipple. However, during pre-biopsy imaging, this mass is no longer seen. The library technician and radiologist both attempted numerous times and with different techniques to locate this mass. Although a few instances showed an irregular hypoechoic finding, it could not be confidently reproduced for b iospy. A hypoechoic lesion could only be reproduced with very specific transducer probe positioning b ut any slight movement would make the finding disperse into background dense fibroglandular tissue. A s a result, the biopsy was not performed. IMPRESSION: SUSPICIOUS OF MALIGNANCY The previously described irregular mass could not be confidently reproduced for sonographic guided bi opsy. Given that this finding most likely correlates with previously described asymmetry on mammogram , a stereotactic biopsy is recommended. The patient agreed to return for stereotactic biopsy which will be scheduled for a later date. Findings and recommendations were discussed with the patient during today's examination. This exam was interpreted at Station ID: [id number]. Electronically Signed By: Jayme Hernandez M.D. aty/:10/25/2020 18:12:25 Ultrasound BI-RADS: 4 Suspicious for malignancy BI-RADS CATEGORY: (4) - 4 None [id number] Immediate follow-up LATERALITY: ()
== END 2020-10-25 12:10 | disposition home or self-care (01) ==
LOC: DI 12:09
PROVIDERS: ATTEND Family Medicine
DX: R92.8 Other abnormal and inconclusive findings on diagnostic imaging of breast (principal); N64.89 Other specified disorders of breast